=== PATIENT | female | born 1930 | race Caucasian/White ===

== ENCOUNTER 2017-11-17 22:15 | Emergency (ER) | payer MEDICARE ==
[2017-11-17 22:37] VITALS: BP 182/100; PULSE 96; O2SAT 97
--- NOTE | 2017-11-17 22:59 | ERPHSYRPT ---
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 pt fell onto left elbow then onto face suffering abrasion to left elbow and abrasion and small lacertaion to upper lip. pt did not lose consciousness. pt denies pain. pt became a little swollen and thought lip was getting worse. she contacted relative who talked to pt about having it evaluated. Occurred: this morning Reason for Fall: tripped ( over a step.) Injuries/Pain Location: face (upper lip), upper extremity (left elbow.), mouth ( upper lip) Loss of Consciousness: no loss of consciousness Quality: other (no pain) Severity of Pain-Max: none Severity of Pain-Current: none Associated Symptoms (Fall): extremity injury (left elbow), No denies symptoms, No abdominal pain, No back pain, No confusion, No chest pain, No dizziness, No headache, No lightheadedness, No muscle spasms, No nausea, No neck pain, No ringing in ears, No seizures Allergies/Adverse Reactions: nitrofurantoin [From Macrodantin] Allergy (Verified 11/17/17 22:38) Penicillins Allergy (Verified 11/17/17 22:38) ciprofloxacin [From Cipro] Adverse Reaction (Verified 11/17/17 22:38) Home Medications: Metoprolol Tartrate 25 mg PO DAILY 11/17/17 [History] levoFLOXacin [Levofloxacin] 500 mg PO DAILY 11/17/17 [History] Hx Tetanus, Diphtheria Vaccination/Date Given: No (years ago) - Review of Systems Constitutional: No Symptoms Eyes: No Symptoms Ears, Nose, & Throat: No Symptoms, Epistaxis, Mouth Swelling (upper lip) Respiratory: No Symptoms, No Cough, No Dyspnea, No Stridor, No Wheezing Cardiac: No Symptoms, No Palpitations, No Syncope, No Other Abdominal/Gastrointestinal: No Symptoms, No Abdominal Pain, No Nausea, No Vomiting, No Diarrhea Genitourinary Symptoms: No Symptoms, No Dysuria, No Hematuria Musculoskeletal: Fall, Injury (left elbow) Skin: Other (abrasion left elbow) Neurological: No Symptoms Psychological: No Symptoms Endocrine: No Symptoms Hematologic/Lymphatic: No Symptoms Immunological/Allergic: No Symptoms All Other Systems: Reviewed and Negative - Past Medical History Pertinent Past Medical History: Yes Neurological History: No Pertinent History ENT History: No Pertinent History Cardiac History: Hypertension Respiratory History: No Pertinent History Endocrine Medical History: No Pertinent History Musculoskeletal History: No Pertinent History GI Medical History: No Pertinent History History: No Pertinent History Psycho-Social History: No Pertinent History Female Reproductive Disorders: No Pertinent History - Past Surgical History Past Surgical History: Yes Neuro Surgical History: No Pertinent History Cardiac: No Pertinent History Respiratory: No Pertinent History Gastrointestinal: No Pertinent History, Appendectomy Genitourinary: No Pertinent History Musculoskeletal: No Pertinent History Female Surgical History: Hysterectomy - Social History Smoking Status: Never smoker Exposure to second hand smoke: No Drug Use: none Patient Lives Alone: Yes - Nursing Vital Signs Nursing Vital Signs: Initial Vital Signs Temperature 97.9 F 11/17/17 22:27 Pulse Rate 96 H 11/17/17 22:27 Blood Pressure 182/100 11/17/17 22:27 O2 Sat by Pulse Oximetry 97 11/17/17 22:27 Pain Scale Pain Intensity 0 - Sallie Coma Score Best Eye Response (Sallie): (4) open spontaneously Best Verbal Response (Sallie): (5) oriented Best Motor Response ([place]): (6) obeys commands [place] Total: 15 - Physical Exam General Appearance: no apparent distress, alert Head Injury: no evidence of injury Eye Exam: PERRL/EOMI ENT Exam: airway nml, evidence of ENT injury (upper lip mid deep abrasion. no through and through laceration. no loose teeth.), No dental injury Neck Exam: supple, trachea midline, full range of motion, normal alignment, normal inspection, No focal neuro deficit, No muscle spasm, No paraspinous muscle tender, No pain on movement of neck Respiratory/Chest Exam: normal breath sounds, No chest tenderness, No respiratory distress, No ecchymosis, No crepitus, No decreased breath sounds, No rhonchi, No wheezing Cardiovascular Exam: normal heart sounds, regular rate/rhythm Gastrointestinal Exam: soft, normal bowel sounds, No tenderness, No guarding, No rebound Rectal Exam: not done Back Exam: normal inspection Extremity Exam: normal range of motion, capillary refill <3 sec, tenderness ( soft tissue left elbow with abrasion) Neurologic Exam: alert, oriented x 3, cooperative, diesel truck mechanic II-XII nml as tested, normal mood/affect, nml cerebellar function, nml station & gait, sensation nml, No motor deficits, No sensory deficit, No disoriented, No confusion Skin Exam: normal color, warm, dry, abrasion (left elbow and upper lip midline) SpO2 Interpretation: normal SpO2: 97 - Course Nursing assessment & vital signs reviewed: Yes - Progress Progress: unchanged, re-examined Progress Note: 11/17/17 23:06 pt declines all xrays, ct scans. she only wanted an evaluation to see if any surgery or xrays absolutely necessary. i cannot they are absolutely necessary. Counseled pt/family regarding: diagnosis, need for follow-up - Departure Time of Disposition: 23:07 Departure Disposition: Home Clinical Impression: Abrasion of lip, initial encounter, Abrasion of left elbow Condition: Stable Critical Care Time: No Referrals: ELENA MCCANN LABOR COMMISSIONER [Primary Care Provider] - Additional Instructions: keep all abrasion sites clean. apply antibiotic ointment to all abrasion sites 2 times daily. follow up with primary doctor for further management
== END 2017-11-17 23:30 | disposition home or self-care (01) ==
LOC: ED 22:15
DX: S00.511A Abrasion of lip, initial encounter (principal); S50.312A Abrasion of left elbow, initial encounter; M25.522 Pain in left elbow; K13.79 Other lesions of oral mucosa; W01.198A Fall on same level from slipping, tripping and stumbling with subsequent striking against other object, initial encounter; Y92.414 Local residential or business street as the place of occurrence of the external cause
CPT/HCPCS: 99283

== ENCOUNTER 2018-06-11 18:08 | Emergency (ER) | payer MEDICARE ==
[2018-06-11] MEDS ORDERED: Sodium Chloride 0.9% 1000 ML 1,000 ML ONE (18:58)
[2018-06-11 19:00] LABS: Basophil (Absolute #) 0 (0-0.4); Eosinophil (Absolute #) 0 (0-0.5); Granulocyte Absolute (ANC) 13.11 (1.4-6.9); Granulocytes % 91.4 % (36.0-66.0); Hemoglobin 12.6 gm/dl (12.0-16.0); Lymphocyte (Absolute #) 0.43 (1.0-4.6); Mean Cell Volume 94.1 fl (78-100); Mean Corpuscular Hgb Concent. 33.2 g/dl (32-36); Mean Platelet Volume 9.4 fl (6-9.5); Monocyte (Absolute #) 0.81 (0.0-1.3); Monocytes % 5.6 % (0.0-12.0); Platelet Count 163 K/mm3 (150-450); Red Blood Count 4.04 M/mm3 (4.1-5.4); White Blood Count 14.4 K/mm3 (4.0-10.5)
[2018-06-11] MEDS ORDERED: Sodium Chloride 0.9% 1000 ML 1,000 ML IV SCH (19:00)
[2018-06-11 19:04] LABS: Mean Corpuscular Hemoglobin 31.1 pg (26-32)
[2018-06-11 19:05] LABS: Appearance CLEAR (CLEAR); Bilirubin NEGATIVE (NEGATIVE); Blood SMALL Ery/ul (0-5); Glucose NEGATIVE (NEGATIVE); Ketones MODERATE (NEGATIVE); Leukocyte Esterase NEGATIVE (NEGATIVE); Nitrite NEGATIVE (NEGATIVE); Protein,Urine Dip NEGATIVE (Negative); Specific Gravity 1.012 (1.005-1.025); Urobilinogen NEGATIVE mg/dL (0-1)
[2018-06-11 19:23] LABS: ALBUMIN 4.1 g/dL (3.5-5.0); ALKALINE PHOSPHATASE 74 U/L (38-126); ANION GAP 17.5 MEQ/L (5-15); BLOOD UREA NITROGEN 14 mg/dL (7-17); CHLORIDE 95 mmol/L (98-107); Calcium 9.4 mg/dL (8.4-10.2); Carbon Dioxide 23 mmol/L (22-30); Creatinine 1 0.76 mg/dL (0.52-1.04); Glucose 253 mg/dL (74-106); Potassium 3.6 mmol/L (3.5-5.1); SGOT/AST 26 U/L (14-36); SGPT/ALT 18 U/L (0-35); SODIUM 132 mmol/L (137-145); Total Protein 7.3 g/dL (6.3-8.2)
--- NOTE | 2018-06-11 19:41 | ERPHSYRPT ---
- History of Present Illness Time Seen by Provider: 06/11/18 19:35 Source: patient Exam Limitations: no limitations Patient Subjective Stated Complaint: weakness, chillin, just doesn' feel good, nauseated Triage Nursing Assessment: Pt brought in by wheelchair due to weakness, usually gets around all over the place by herself, BP 155/68, no edema, denies pain, Yudith Mccann SUPERVISOR/PORT DIRECTOR is treating her for a UTI with Nitrofurantoin 100 mg, weakness Physician History: 88-year-old white female with history of high blood pressure who was recently placed on Macrodantin by her nurse practitioner for a UTI. Arrives with complaint of general malaise chills feeling weak symptoms since yesterday. Patient without nausea no vomiting no shortness of breath no chest pain. Patient feeling better after some IV normal saline. Past medical history includes high blood pressure. Past surgical history includes appendectomy and hysterectomy. Social history is negative. Timing/Duration: yesterday Severity: moderate Modifying Factors: Improves With: other (patient on Macrodantin for UTI) Associated Symptoms: chills, malaise, weakness, No nausea, No vomiting, No abdominal pain, No shortness of breath, No heartburn, No diaphoresis, No cough, No chest pain, No fever, No headaches, No loss of appetite, No rash, No syncope , No seizure Allergies/Adverse Reactions: nitrofurantoin [From Macrodantin] Allergy (Verified 06/11/18 18:29) Penicillins Allergy (Verified 06/11/18 18:29) ciprofloxacin [From Cipro] Adverse Reaction (Verified 06/11/18 18:29) Home Medications: Metoprolol Tartrate 25 mg PO BID 11/17/17 [History] Hx Tetanus, Diphtheria Vaccination/Date Given: No (years ago) Hx Influenza Vaccination/Date Given: Yes - Review of Systems Constitutional: Chills, Malaise, Weakness, No Fever, No Fatigue, No Lethargy, No Night Sweats, No Weight Loss Eyes: No Symptoms Ears, Nose, & Throat: No Symptoms Respiratory: No Cough, No Dyspnea Cardiac: No Chest Pain, No Edema, No Syncope Abdominal/Gastrointestinal: No Abdominal Pain, No Nausea, No Vomiting, No Diarrhea Genitourinary Symptoms: No Dysuria Musculoskeletal: No Back Pain, No Neck Pain Skin: No Rash Neurological: No Dizziness, No Focal Weakness, No Sensory Changes Psychological: No Symptoms Endocrine: No Symptoms All Other Systems: Reviewed and Negative - Past Medical History Pertinent Past Medical History: Yes Neurological History: No Pertinent History ENT History: No Pertinent History Cardiac History: Hypertension Respiratory History: No Pertinent History Endocrine Medical History: No Pertinent History Musculoskeletal History: No Pertinent History GI Medical History: No Pertinent History History: No Pertinent History Psycho-Social History: No Pertinent History Female Reproductive Disorders: No Pertinent History - Past Surgical History Past Surgical History: Yes Neuro Surgical History: No Pertinent History Cardiac: No Pertinent History Respiratory: No Pertinent History Gastrointestinal: No Pertinent History, Appendectomy Genitourinary: No Pertinent History Musculoskeletal: No Pertinent History Female Surgical History: Hysterectomy - Social History Smoking Status: Never smoker Exposure to second hand smoke: No Drug Use: none Patient Lives Alone: No - Nursing Vital Signs Nursing Vital Signs: Initial Vital Signs Temperature 98.4 F 06/11/18 18:16 Pulse Rate 78 06/11/18 18:16 Blood Pressure 155/68 06/11/18 18:16 O2 Sat by Pulse Oximetry 94 L 06/11/18 18:16 Pain Scale Pain Intensity 0 - Physical Exam General Appearance: no apparent distress, alert Eye Exam: PERRL/EOMI, eyes nml inspection, other (fundi are unremarkable) Ears, Nose, Throat Exam: normal ENT inspection, TMs normal, pharynx normal, moist mucous membranes Neck Exam: normal inspection, non-tender, supple, full range of motion Respiratory Exam: normal breath sounds, lungs clear, No respiratory distress Cardiovascular Exam: regular rate/rhythm, normal heart sounds, normal peripheral pulses, capillary refill <2 sec Gastrointestinal/Abdomen Exam: soft, normal bowel sounds, No tenderness, No mass Back Exam: normal inspection, normal range of motion, No CVA tenderness, No vertebral tenderness Extremity Exam: normal inspection, normal range of motion, pelvis stable Neurologic Exam: alert, oriented x 3, cooperative, learning and development analyst II-XII nml as tested, normal mood/affect, nml cerebellar function, nml station & gait, sensation nml, No motor deficits Skin Exam: normal color, warm, dry, No rash Lymphatic Exam: No adenopathy SpO2 Interpretation: normal (98%) SpO2: 98 - Course Nursing assessment & vital signs reviewed: Yes EKG Interpreted by Me: RATE (72 bpm), NORMAL INTERVALS, Other (EKG: Sinus arrhythmia with PVC 72 bpm normal axis no acute ST or T wave changes noted.) - Radiology Exams Chest X-ray Interpretation: Interpreted by me (small left lower lobe infiltrate) - CT Exams Chest CT Interpretation: Discussed w/radiologist (chest x-ray: Negative pulmonary embolism. patchy left lower lobe infiltrate with tiny effusion) Ordered Tests: Active Orders 24 hr Category Date Time Status Accucheck STAT Care 06/11/18 21:41 Active Cath for Specimen-Straight STAT Care 06/11/18 18:37 Active EKG-ER Only STAT Care 06/11/18 18:36 Active IV Insertion STAT Care 06/11/18 18:36 Active CHEST 1 VIEW (PORTABLE) Stat Exams 06/11/18 19:33 Taken CHEST WITH CONTRAST [CT] Stat Exams 06/11/18 19:48 Taken BLOOD CULTURE Stat Lab 06/11/18 18:00 Received CBC W DIFF Stat Lab 06/11/18 18:45 Completed CMP Stat Lab 06/11/18 18:45 Completed D-DIMER QUANTITATION Stat Lab 06/11/18 18:45 Completed TROPONIN Q3H Lab 06/11/18 18:45 Completed TROPONIN Q3H Lab 06/11/18 21:45 Ordered UA W/RFX UR CULTURE Stat Lab 06/11/18 18:35 Completed VENOUS BLOOD GAS Stat Lab 06/11/18 20:00 Completed Medication Summary Generic Name Dose Route Start Last Admin Trade Name Freq PRN Reason Stop Dose Admin Sodium Chloride 1,000 mls @ 100 mls/hr 06/11/18 19:00 06/11/18 19:00 Sodium Chloride 0.9% 1000 Ml IV 07/11/18 18:59 100 mls/hr .Q10H OBI Administration Discontinued Medications Generic Name Dose Route Start Last Admin Trade Name Freq PRN Reason Stop Dose Admin Ceftriaxone Sodium/Dextrose 1 g in 50 mls @ 100 mls/hr 06/11/18 21:40 21:51 Rocephin 1 Gm-D5w 50 Ml Bag IV 06/11/18 22:09 100 ml/hr STAT STA 100 mls/hr Administration Ceftriaxone Sodium/Dextrose Confirm 06/11/18 21:43 Rocephin 1 Gm-D5w 50 Ml Bag Administered 06/11/18 21:44 Dose 1 g in 50 mls @ ud IV .STK-MED ONE Lab/Rad Data: Laboratory Result Diagrams 06/11/18 18:45 06/11/18 18:45 Laboratory Results 06/11/18 06/11/18 06/11/18 Range/Units 20:00 18:45 18:45 WBC (4.0-10.5) K/mm3 RBC (4.1-5.4) M/mm3 Hgb (12.0-16.0) gm/dl Hct (35-47) % MCV (78-100) fl MCH (26-32) pg MCHC (32-36) g/dl RDW (11.5-14.0) % Plt Count (150-450) K/mm3 MPV (6-9.5) fl Gran % (36.0-66.0) % Eos # (Auto) (0-0.5) Absolute Lymphs (auto) (1.0-4.6) Absolute Monos (auto) (0.0-1.3) Lymphocytes % (24.0-44.0) % Monocytes % (0.0-12.0) % Eosinophils % (0.00-5.0) % Basophils % (0.0-0.4) % Absolute Granulocytes (1.4-6.9) Basophils # (0-0.4) D-Dimer 897 H* (215-500) ng/mL pO2/FiO2 Ratio 21.0 % VBG pH 7.49 H (7.32-7.42) VBG pCO2 at Pat Temp 28 L (42-55) mm/Hg VBG pO2 at Pat Temp 51 H (25-40) mm/Hg VBG HCO3 21.3 L (22-28) meq/L VBG O2 Sat ([place]row) 93.5 L (95-100) VBG Base Excess -0.9 (-2.0-2.0) VBG Hemoglobin 13.4 VBG Carboxyhemoglobin 3.9 (0.0-6.9) % T HGB POC Potassium 3.5 (3.5-5.1) Sodium (137-145) mmol/L Potassium (3.5-5.1) mmol/L Chloride (98-107) mmol/L Carbon Dioxide (22-30) mmol/L Anion Gap (5-15) MEQ/L BUN (7-17) mg/dL Creatinine (0.52-1.04) mg/dL Estimated GFR ML/MIN Glucose (74-106) mg/dL Calcium (8.4-10.2) mg/dL Total Bilirubin (0.2-1.3) mg/dL AST (14-36) U/L ALT (0-35) U/L Alkaline Phosphatase (38-126) U/L Troponin I < 0.012 (0.000-0.034) ng/mL Serum Total Protein (6.3-8.2) g/dL Albumin (3.5-5.0) g/dL Urine Color (YELLOW) Urine Appearance (CLEAR) Urine pH (5-6) Ur Specific [place] (1.005-1.025) Urine Protein (Negative) Urine Ketones (NEGATIVE) Urine Blood (0-5) Roger/ul Urine Nitrite (NEGATIVE) Urine Bilirubin (NEGATIVE) Urine Urobilinogen (0-1) mg/dL Ur Leukocyte Esterase (NEGATIVE) Urine WBC (Auto) (0-5) /HPF Urine RBC (Auto) (0-2) /HPF Unidentified Crystals (NEGATIVE) /HPF Urine Culture Reflexed (NO) Urine Glucose (NEGATIVE) mg/dL 06/11/18 06/11/18 06/11/18 Range/Units 18:45 18:45 18:35 WBC 14.4 H (4.0-10.5) K/mm3 RBC 4.04 L (4.1-5.4) M/mm3 Hgb 12.6 (12.0-16.0) gm/dl Hct 38.0 (35-47) % MCV 94.1 (78-100) fl MCH 31.1 (26-32) pg MCHC 33.2 (32-36) g/dl RDW 13.0 (11.5-14.0) % Plt Count 163 (150-450) K/mm3 MPV 9.4 (6-9.5) fl Gran % 91.4 H (36.0-66.0) % Eos # (Auto) 0 (0-0.5) Absolute Lymphs (auto) 0.43 L (1.0-4.6) Absolute Monos (auto) 0.81 (0.0-1.3) Lymphocytes % 3.0 L (24.0-44.0) % Monocytes % 5.6 (0.0-12.0) % Eosinophils % 0.0 (0.00-5.0) % Basophils % 0.0 (0.0-0.4) % Absolute Granulocytes 13.11 H (1.4-6.9) Basophils # 0 (0-0.4) D-Dimer (215-500) ng/mL pO2/FiO2 Ratio % VBG pH (7.32-7.42) VBG pCO2 at Pat Temp (42-55) mm/Hg VBG pO2 at Pat Temp (25-40) mm/Hg VBG HCO3 (22-28) meq/L VBG O2 Sat ([place]) (95-100) VBG Base Excess (-2.0-2.0) VBG Hemoglobin VBG Carboxyhemoglobin (0.0-6.9) % T HGB POC Potassium (3.5-5.1) Sodium 132 L (137-145) mmol/L Potassium 3.6 (3.5-5.1) mmol/L Chloride 95 L (98-107) mmol/L Carbon Dioxide 23 (22-30) mmol/L Anion Gap 17.5 H (5-15) MEQ/L BUN 14 (7-17) mg/dL Creatinine 0.76 (0.52-1.04) mg/dL Estimated GFR > 60.0 ML/MIN Glucose 253 H (74-106) mg/dL Calcium 9.4 (8.4-10.2) mg/dL Total Bilirubin 0.70 (0.2-1.3) mg/dL AST 26 (14-36) U/L ALT 18 (0-35) U/L Alkaline Phosphatase 74 (38-126) U/L Troponin I (0.000-0.034) ng/mL Serum Total Protein 7.3 (6.3-8.2) g/dL Albumin 4.1 (3.5-5.0) g/dL Urine Color YELLOW (YELLOW) Urine Appearance CLEAR (CLEAR) Urine pH 5.0 (5-6) Ur Specific [place] 1.012 (1.005-1.025) Urine Protein NEGATIVE (Negative) Urine Ketones MODERATE (NEGATIVE) Urine Blood SMALL (0-5) Roger/ul Urine Nitrite NEGATIVE (NEGATIVE) Urine Bilirubin NEGATIVE (NEGATIVE) Urine Urobilinogen NEGATIVE (0-1) mg/dL Ur Leukocyte Esterase NEGATIVE (NEGATIVE) Urine WBC (Auto) 3-5 (0-5) /HPF Urine RBC (Auto) 16-25 (0-2) /HPF Unidentified Crystals 2-5 (NEGATIVE) /HPF Urine Culture Reflexed NO (NO) Urine Glucose NEGATIVE (NEGATIVE) mg/dL - Progress Progress: improved Progress Note: 06/11/18 19:38 This is a 88-year-old white female with history of high blood pressure she has recently been placed on nitrofurantoin secondary to UTI patient apparently has a listed allergy to nitrofurantoin she states that she has been having chills general malaise she has no fever no nausea no vomiting she did feel weak symptoms started yesterday. Patient has been started on IV fluids of with normal saline at 100 she states she is already feeling better. Past medical history high blood pressure. Past surgical history appendectomy hysterectomy. Patient's vitals are stable Physical examination atraumatic normocephalic. Eyes PERRLA EOMI fundi are unremarkable. Ears TMs escalante intact bilaterally. Nose is clear. Throat is clear. Neck is supple full range of motion. Lungs are clear. Heart regular rate and rhythm without murmur. Abdomen soft nontender nondistended positive bowel sounds. Extremities full range of motion pulse equal symmetrical 2 over 4. Neuro cranial nerves II through XII are intact DTRs symmetrical 2 over 4 Sallie Coma Scale 15. Labs white blood cell 14.4 hemoglobin 12.6 hematocrit 38.0 platelets 163. Chemistry sodium 132 potassium 3.6 chloride 95 bicarbonate 23 BUN 14 creatinine 0.76 glucose 253. Urinalysis moderate amount of ketones specific gravity is 1.0123-5 white cells per high-power field. Patient is feeling markedly improved Will go ahead and obtain chest x-ray on this patient also will obtain venous gases. Expect patient to be given IV fluid bolus if patient continues to feel improved will consider discharge. 06/11/18 21:40 Patient feeling markedly better after receiving 1 L of normal saline. Patient with a small patchy infiltrate with a tiny effusion left lower lung on CT chest. Will go ahead and give patient Rocephin 1 g IV. Patient does have a listed allergy of a penicillin however she thinks she got a rash at the time. Consider home on Zithromax. 06/11/18 22:16 Patient feeling markedly better and in no distress after 1 g of Rocephin and 1 L of normal saline. Patient's Accu-Chek now 136. Patient wants to go home Will discharge patient. - Departure Departure Disposition: Home Clinical Impression: Hyperglycemia Pneumonia Qualifiers: Pneumonia type: due to unspecified organism Laterality: left Lung location: lower lobe of lung Qualified Code(s): J18.1 - Lobar pneumonia, unspecified organism Condition: Fair Critical Care Time: No Referrals: YUDITH MCCANN ART HISTORY INSTRUCTOR [Primary Care Provider] - Instructions: Pneumonia, Adult (DC) Additional Instructions: Return home. Plenty of fluids. Zithromax as prescribed. Follow-up with your family doctor, call tomorrow and schedule an appointment for follow-up. Return for acute distress, severe symptoms, or for any problems., Prescriptions: Azithromycin 250 mg [Zithromax 250 MG TABLET] 0 mg PO ZPACK #6 tablet
[2018-06-11 20:05] LABS: VBG BASE EXCESS -0.9 (-2.0-2.0); VBG CARBOXYHEMOGLOBIN 3.9 % T HGB (0.0-6.9); VBG HCO3- 21.3 meq/L (22-28); VBG HEMOGLOBIN 13.4; VBG O2 SATURATION 93.5 (95-100); VBG POTASSIUM 3.5 (3.5-5.1); VBG pH 7.49 (7.32-7.42)
[2018-06-11] MEDS ORDERED: ROCEPHIN 1 Gm-D5w 50 ml Bag** 1 G/50 ML IVPB IV STA (21:40)
[2018-06-11] MEDS ORDERED: ROCEPHIN 1 Gm-D5w 50 ml Bag** 1 G/50 ML IVPB IV ONE (21:43)
[2018-06-11 22:34] VITALS: BP 159/62; PULSE 78; O2SAT 96
[2018-06-11 23:49] LABS: Slide Review 1 YES
--- NOTE | 2018-06-12 08:41 | XRAY ---
Indication: Weakness, elevated WBC, and elevated d-dimer. Multiple contiguous axial images obtained through the chest using 80 cc Isovue 300 contrast and PE protocol. Comparison: None There is good opacification of the pulmonary arteries to include the lobar and segmental branches. No filling defect or pulmonary embolus. Heart is not enlarged. Aorta mildly tortuous carotid without aneurysm/dissection. Subcarinal and left perihilar calcified nodes. No pathologic mediastinal/hilar lymphadenopathy. Minimal fluid leveling in the midesophagus, possibly from gastroesophageal reflux. Distal esophagus also demonstrates wall thickening, possible esophagitis. Examination of the lung parenchyma demonstrates mild bilateral dependent atelectasis and mild scattered fibrosis/scarring. Left lower lobe demonstrates patchy airspace opacities some appearing consolidated. Also tiny left effusion. No suspicious pulmonary mass/nodule. Bony thorax demonstrate mild degenerative changes throughout the spine. Limited upper abdomen demonstrates fatty liver. Impression: 1. Negative pulmonary embolus. 2. Left lower lobe airspace disease with tiny effusion. 3. Distal esophageal wall thickening. Rule out esophagitis. Also mid esophageal minimal fluid leveling possibly from gastroesophageal reflux. 4. Fatty liver and evidence for old granulomatous disease. CT DI 10.00
--- NOTE | 2018-06-12 08:44 | XRAY ---
Indication: Chills. Comparison: None Portable chest demonstrates patchy left mid-lower lung airspace disease. Remaining heart and lungs unremarkable with incidental left perihilar and right axilla calcified nodes. Bony thorax intact with osteopenia and degenerative changes.
== END 2018-06-11 22:39 | disposition home or self-care (01) ==
LOC: ED 18:08
DX: R73.9 Hyperglycemia, unspecified (principal); J18.1 Lobar pneumonia, unspecified organism; I10 Essential (primary) hypertension; N39.0 Urinary tract infection, site not specified; Z79.899 Other long term (current) drug therapy
CPT/HCPCS: 36000; 36415; 71045; 71260; 80053; 81001; 82805; 82962; 84484; 85025; 85379; 87040; 93005; 96360; 96361; 96365; 99285; P9612; J0696